=== PATIENT | female | born 1985 | race Caucasian/White ===

== ENCOUNTER → 2024-05-28 | Outpatient (REF) | payer OTHER ==
[~2024-05-28] MED LIST: ACETAMINOPHEN-1 EAC4 PO; CYMBALTA30 MG PO; LOSARTAN POTASS25 MG PO; MULTI-VITAMIN1 EACH PO; [UNRECOGNIZED DRUG - OTHER] PO
== END ==
LOC: WCC 11:18
PROVIDERS: ATTEND Internal Medicine Infectious Disease
DX: I87.312 Chronic venous hypertension (idiopathic) with ulcer of left lower extremity (principal); L97.821 Non-pressure chronic ulcer of other part of left lower leg limited to breakdown of skin; L08.89 Other specified local infections of the skin and subcutaneous tissue; S90.822D Blister (nonthermal), left foot, subsequent encounter; R60.0 Localized edema; B95.7 Other staphylococcus as the cause of diseases classified elsewhere

== ENCOUNTER → 2024-06-01 | Outpatient (REF) | payer OTHER ==
[~2024-06-01] MED LIST changes: +MINERAL OIL/PETROLAT/GLYCERI 6OZ BTL ONE; +TRIAMCINOLONE ACET 0.1% CREAM 15 GM TUBE ONE; +TRYPSIN/BALSAM PERU/CASTOR OIL ONE
== END ==
LOC: WCC 08:40
PROVIDERS: ATTEND Internal Medicine Infectious Disease
DX: I87.312 Chronic venous hypertension (idiopathic) with ulcer of left lower extremity (principal); L97.821 Non-pressure chronic ulcer of other part of left lower leg limited to breakdown of skin; S90.822D Blister (nonthermal), left foot, subsequent encounter; L08.89 Other specified local infections of the skin and subcutaneous tissue; B95.7 Other staphylococcus as the cause of diseases classified elsewhere; R60.0 Localized edema

== ENCOUNTER → 2024-06-04 | Outpatient (REF) | payer OTHER ==
[~2024-06-04] MED LIST changes: -MINERAL OIL/PETROLAT/GLYCERI 6OZ BTL ONE; -TRIAMCINOLONE ACET 0.1% CREAM 15 GM TUBE ONE; -TRYPSIN/BALSAM PERU/CASTOR OIL ONE
== END ==
LOC: WCC 08:36
PROVIDERS: ATTEND Internal Medicine Infectious Disease
DX: I87.312 Chronic venous hypertension (idiopathic) with ulcer of left lower extremity (principal); L97.821 Non-pressure chronic ulcer of other part of left lower leg limited to breakdown of skin; L08.89 Other specified local infections of the skin and subcutaneous tissue; S90.822D Blister (nonthermal), left foot, subsequent encounter; B95.7 Other staphylococcus as the cause of diseases classified elsewhere; R60.0 Localized edema

== ENCOUNTER → 2024-06-07 | Outpatient (REF) | payer OTHER | LOC: WCC 15:36 | PROVIDERS: ATTEND Internal Medicine Infectious Disease | DX: I87.312 Chronic venous hypertension (idiopathic) with ulcer of left lower extremity (principal); L97.821 Non-pressure chronic ulcer of other part of left lower leg limited to breakdown of skin; L08.89 Other specified local infections of the skin and subcutaneous tissue; B95.7 Other staphylococcus as the cause of diseases classified elsewhere; S90.822D Blister (nonthermal), left foot, subsequent encounter ==

== ENCOUNTER → 2024-06-14 | Outpatient (REF) | payer OTHER ==
[~2024-06-14] MED LIST changes: +MINERAL OIL/PETROLAT/GLYCERI 6OZ BTL ONE
== END ==
LOC: WCC 16:02
PROVIDERS: ATTEND Internal Medicine Infectious Disease
DX: L03.116 Cellulitis of left lower limb (principal); I87.312 Chronic venous hypertension (idiopathic) with ulcer of left lower extremity; L08.89 Other specified local infections of the skin and subcutaneous tissue; L97.821 Non-pressure chronic ulcer of other part of left lower leg limited to breakdown of skin; S90.822D Blister (nonthermal), left foot, subsequent encounter; R60.0 Localized edema; B95.7 Other staphylococcus as the cause of diseases classified elsewhere